=== PATIENT | male | born 1960 | race Caucasian/White ===

== ENCOUNTER 2017-12-09 21:21 | Emergency (ER) | payer OTHER | END 2017-12-09 23:38 | disposition home or self-care (01) | LOC: EDH 21:21 | DX: S63.92XA Sprain of unspecified part of left wrist and hand, initial encounter (principal); S20.211A Contusion of right front wall of thorax, initial encounter; S70.01XA Contusion of right hip, initial encounter; I10 Essential (primary) hypertension; Z88.6 Allergy status to analgesic agent; V29.09XA Motorcycle driver injured in collision with other motor vehicles in nontraffic accident, initial encounter; Y93.89 Activity, other specified; Y92.89 Other specified places as the place of occurrence of the external cause; Y99.8 Other external cause status | CPT/HCPCS: 71100; 73110 ==